=== PATIENT | female | born 1980 | race Caucasian/White ===

== ENCOUNTER → 2016-06-28 | Outpatient (CLI) | payer BC ==
[~2016-06-28] MED LIST: DIPH25CA37 PO; DOCU-94 PO; FAMO20TA9 PO; PRENTAB26 PO; SERT50TA PO
== END | disposition home or self-care (01) ==
LOC: C.PAPS 09:58
PROVIDERS: ATTEND Obstetrics & Gynecology
DX: Z01.419 Encounter for gynecological examination (general) (routine) without abnormal findings (principal)

== ENCOUNTER → 2016-11-16 | Outpatient (CLI) | payer BC ==
[2016-11-16 07:46] LABS: PATIENT HEIGHT 170.2 cm
[2016-11-16 20:11] LABS: URINE TOTAL PROTEIN < 5.0 mg/dl (0-11.9)
[2016-11-16 20:33] LABS: CREATININE 0.73 mg/dl (0.6-1.2); URINE COLLECTION TIME 24 HOURS; URINE TOTAL PROTEIN CALC < 305.0 mg/24 hr (0-149.1)
== END | disposition home or self-care (01) ==
LOC: C.LABBC 07:21
PROVIDERS: ATTEND Internal Medicine Nephrology
DX: Z52.4 Kidney donor (principal)

== ENCOUNTER → 2016-11-21 | Outpatient (CLI) | payer BC ==
--- NOTE | 2016-11-21 15:19 | MAMMOGRAPHY REPORT ---
BILATERAL DIGITAL DIAGNOSTIC MAMMOGRAM TOMOSYNTHESIS WITH CAD AND TARGETED RIGHT ULTRASOUND: 7 CLINICAL HISTORY: 36-year-old woman with bilateral saline implants and recent right implant rupture. She is undergoing preoperative assessment for kidney donation and was incidentally found to have a 5 mm nodular opacity overlying the anterior right fifth rib. A subsequent chest CT did not describe a ny breast abnormalities aside a small 5 mm bone island in the right fifth rib. Patient presents for full assessment. TECHNIQUE: Bilateral CC and MLO views of the breasts with and without implant displacement views were obtained. Tomosynthesis was performed on the implant displaced views. Current study was also evalu ated with a Computer Aided Detection (CAD) system. COMPARISON: No prior exams were available for comparison. BREAST COMPOSITION: The tissue of both breasts is heterogeneously dense, which may obscure small mas ses. FINDINGS: A left sided subglandular silicone implant is intact. A retropectoral right-sided implant is only partially seen on the full field CC view. This represents the site of the deflated implant. No suspicious mass, architectural distortion or cluster of microcalcifications is seen bilaterally. Targeted ultrasound was performed throughout the right breast, with particular attention to the later al aspect of the breast in the region of the anterior fifth rib. A morphologically normal lymph node is seen in the 10:00 breast near the axillary tail measuring 8 mm. No suspicious solid or cystic ma ss is identified. The deflated implant is seen deep to the pectoralis muscle. The hub of the implan t is noted in the 8:00 periareolar region. IMPRESSION: ACR BI-RADS CATEGORY 2: BENIGN, TARGETED ULTRASOUND ACR BI-RADS CATEGORY 2: BENIGN 1. There is a deflated right sided saline implant. 2. A left sided saline implant is intact. There is no mammographic evidence of malignancy in the br easts, and no targeted sonographic evidence of malignancy in the right breast. No suspicious mammogr aphic or sonographic abnormality is identified to correlate with the finding described on the initial outside chest x-ray from 11/06/2016. 3. Review of the outside chest x-ray and chest CT suggest that the bone island seen in the anterior right fifth rib on CT explains the nodular 5 mm density seen on the initial chest x-ray. There is no evidence of a suspicious finding within the right breast. These results and recommendations were discussed with the patient at the time of the exam. Recommend routine screening mammography beginning at age 40, unless there is a new palpable concern. Approximately 10% of breast cancers are not detected with mammography. A negative mammographic report should not delay biopsy if a clinically suggestive mass is present. Aimee Barkley M.D. ay/:11/21/2016 12:22:06 Molecular Biologist: Marely Lima, [facility] letter sent: Normal 1/2 BI-RADS Code: ACR BI-RADS Category 2: Benign Ultrasound BI-RADS: ACR BI-RADS Category 2: Benign
== END | disposition home or self-care (01) ==
LOC: C.MAMM 11:19
PROVIDERS: ATTEND Obstetrics & Gynecology
DX: T85.43XA Leakage of breast prosthesis and implant, initial encounter (principal); X58.XXXA Exposure to other specified factors, initial encounter

== ENCOUNTER → 2016-12-03 | Outpatient (CLI) | payer BC ==
[2016-12-03 17:09] LABS: CREATININE 0.67 mg/dl (0.60-1.20)
[2016-12-04 12:55] LABS: URINE TOTAL PROTEIN < 5.0 mg/dl (0-11.9)
[2016-12-04 13:06] LABS: URINE COLLECTION TIME 24 HOURS; URINE MICROALBUMIN < 5.0 mg/L; URINE MICROALBUMIN CALC 30.3 mg/24hr (0-30); URINE TOTAL PROTEIN CALC < 302.5 mg/24 hr (0-149.1)
[2016-12-06 06:11] LABS: ALBUMIN 4.7 G/DL (3.8-4.8); CREATININE UR 14 MG/DL (20-320); GAMMA GLOBULIN 1.1 G/DL (0.8-1.7); TOTAL PROTEIN 7.3 G/DL (6.2-8.3)
== END | disposition home or self-care (01) ==
LOC: C.LAB 15:42
PROVIDERS: ATTEND Internal Medicine Nephrology
DX: Z52.4 Kidney donor (principal)

== ENCOUNTER → 2017-07-23 | Outpatient (CLI) | payer BC | END | disposition home or self-care (01) | LOC: C.PATHSPEC 09:51 | PROVIDERS: ATTEND Obstetrics & Gynecology | DX: A63.0 Anogenital (venereal) warts (principal); N90.89 Other specified noninflammatory disorders of vulva and perineum ==

== ENCOUNTER → 2017-08-22 | Outpatient (CLI) | payer BC | END | disposition home or self-care (01) | LOC: C.PAPS 19:29 | PROVIDERS: ATTEND Obstetrics & Gynecology | DX: Z01.419 Encounter for gynecological examination (general) (routine) without abnormal findings (principal) ==

== ENCOUNTER 2018-06-07 10:58 | Inpatient (IN) ==
[2018-06-07 13:38] LABS: Amphetamines+Metham, Urine Neg (Neg); Barbiturates, Urine Neg (Neg); Benzodiazepine, Urine Neg (Neg); Cocaine, Urine Neg (Neg); MDMA (Ecstacy), Urine Neg (Neg); Methadone, Urine Neg (Neg); Opiate, Urine Neg (Neg); Phencyclidine, Urine Neg (Neg)
[2018-06-07] MEDS ORDERED: LACTATED RINGER'S 1,000 ML IV PRN ×2 (14:36→15:30)
[2018-06-07] MEDS ORDERED: OXYTOCIN 30 UNITS/500 ML BAG IV PRN ×2 (14:36→19:34)
[2018-06-07] MEDS ORDERED: PENICILLIN G POTASSIUM 3 MU in DEXTROSE 5% 100 ML IV PRN (14:36)
[2018-06-07] MEDS ORDERED: PENICILLIN G POTASSIUM 6 MU in DEXTROSE 5% 250 ML IV ONE (15:00)
[2018-06-07] MEDS ORDERED: BUPIVACAINE 0.25% 30 ML VIAL ONE (15:08)
[2018-06-07] MEDS ORDERED: fentaNYL citrate 100 MCG/2 ML VIAL ONE (15:08)
[2018-06-07] MEDS ORDERED: ePHEDrine sulfate 50 MG/ML AMP ONE (15:08)
[2018-06-07] MEDS ORDERED: fentaNYL 2MCG/ML ROPIV 1.25MG/ML 100 ML BAG EPI ONE (15:09)
[2018-06-07] MEDS ORDERED: ONDANSETRON INJ 2 MG/ML 2 ML VIAL IV PRN (15:30)
[2018-06-07] MEDS ORDERED: NALOXONE HCL 0.4 MG/1 ML VIAL/CARP IV PRN (15:30)
[2018-06-07] MEDS ORDERED: NALBUPHINE HCL INJ 10 MG/ML AMP IV PRN (15:30)
[2018-06-07] MEDS ORDERED: DiphenhydrAMINE HCL 50 MG/ML VIAL IV PRN (15:30)
[2018-06-07] MEDS ORDERED: NALOXONE HCL 1 MG in SODIUM CHLORIDE 0.9% 1000ML 1,000 ML IV PRN (15:30)
[2018-06-07] MEDS ORDERED: fentaNYL 2MCG/ML ROPIV 1.25MG/ML 100 ML BAG EPI PRN (15:30)
[2018-06-07] MEDS ORDERED: ePHEDrine sulfate 50 MG/ML AMP IV PRN (15:30)
[2018-06-07 15:33] LABS: Hematocrit (blood only) 35.8 % (37-47); Hemoglobin 12.1 g/dL (12.0-16.0); Mean Corpuscular Hgb Conc 33.8 g/dL (32-36); Mean Corpuscular Volume 90.2 fL (80-100); Mean Platelet Volume 12.9 fL (7.4-10.4); Platelet Count 106 K/uL (130-400); Platelet Estimate Decreased (Normal); RDW Coefficient of Variation 13.6 % (11.5-14.5); RDW Standard Deviation 44.9 fL (36.4-46.3); Red Blood Count 3.97 M/uL (4.2-5.4)
[2018-06-07] MEDS ORDERED: LIDOCAINE HCL 2% MPF (LOCAL) 5 ML VIAL INFIL ONE (15:57)
[2018-06-07] MEDS: LACTATED RINGER'S 1,000 ML IV SCH (16:06)
[2018-06-07] MEDS ORDERED: DIPHTHERIA/TETANUS/PERTUSSIS 0.5 ML SYR/VIAL IM ONE (19:34)
[2018-06-07] MEDS ORDERED: BENZOCAINE 20% AER SPR 82.5 GM CAN EXT PRN (19:34)
[2018-06-07] MEDS ORDERED: ACETAMINOPHEN 325 MG TAB PO PRN (19:34)
[2018-06-07] MEDS ORDERED: SUPERCREAM 0.870% 15 GM JAR EXT PRN (19:34)
[2018-06-07] MEDS ORDERED: BISACODYL 10 MG SUPP PR PRN (19:34)
[2018-06-07] MEDS ORDERED: HYDROCORTISONE ACETATE 25 MG SUPP PR PRN (19:34)
--- NOTE | 2018-06-07 20:11 | Anesthesia Procedure Note ---
Date of Service June 07, 2018 Anesthesia Post Epidural Note Vital Signs Vital Signs: Temp Pulse Resp BP Pulse Ox 36.5 C 76 20 121/72 98 06/07/18 19:00 06/07/18 20:06 06/07/18 19:00 06/07/18 20:06 06/07/18 19:19 Notes Mental Status: alert / awake / arousable and participated in evaluation Nausea / Vomiting: adequately controlled Pain: adequately controlled Airway Patency, RR, SpO2: stable & adequate BP & HR: stable & adequate Hydration State: stable & adequate Neuraxial Anesthesia: was administered and sensory block is resolving Anesthetic Complications: no major complications apparent and Pt Satisfied with anesthetic care Epidural: Removed without complications and With tip intact
--- NOTE | 2018-06-07 21:40 | Delivery Summary ---
DATE OF OPERATION: 06/07/2018 SURGEON: Lorenzo Campbell MD PREOPERATIVE DIAGNOSES: 1. Single intrauterine at 40 weeks and 4 days gestational age. 2. GBS positive. 3. Labor. POSTOPERATIVE DIAGNOSES: 1. Single intrauterine at 40 weeks and 4 days gestational age. 2. GBS positive. 3. Labor. 4. Delivered. ESTIMATED BLOOD LOSS: 200 mL DRAINS: None. FLUIDS: Continuous lactated ringer. URINE OUTPUT: Not measured. SPECIMENS: None. FINDINGS: Viable female infant with weight and Apgars pending. INDICATIONS: Jeannette is a 37-year-old -0-0-1, admitted at 40 weeks 4 days gestational age in labor. At first evaluation, the patient was noted to be 2 cm dilated, 80% effaced and -3 station. A 2-hour igor noted to change to 4 cm dilated, 80% effaced, -2 station. The patient was admitted to labor and delivery. The patient opted for an epidural and continued to progress in labor without augmentation. She underwent spontaneous rupture of membranes for clear fluid and progressed to complete-complete 0 station, at which time she felt the desire to push. DESCRIPTION OF PROCEDURE: The patient progressed to 10 cm dilated, 100% effaced, 0 station, pushed over intact perineum with epidural anesthesia and delivered a viable female infant with weight and Apgars as above. The head of the delivered in DREAD position restituted to right transverse as single nuchal cord was noted, which was easily reduced. The body and shoulders quickly followed. The was noted to be vigorous approximately 40 seconds after delivery. The cord was double clamped and cut. The cord blood was then obtained. Attention was then turned to delivery of the placenta was delivered intact with 3-vessel cord with gentle cord traction. Inspection of the perineum, vagina, and cervix noted no lacerations. Both mother and were stable in the immediate postdelivery. Sponge and instrument counts were correct at completion of the case. I attest to the content of the Intraoperative Record and any orders documented therein. Any exception s are noted below.
[2018-06-07] MEDS: IBUPROFEN 600 MG TAB PO PRN (22:24)
[2018-06-07] MEDS: DOCUSATE SODIUM 100 MG CAP PO SCH (22:25)
[2018-06-08] MEDS: IBUPROFEN 600 MG TAB PO PRN ×3 (02:42→20:04)
--- NOTE | 2018-06-08 05:58 | Obstetrical Progress Note ---
Date of Service June 08, 2018 Assessment & Plan (1) Vaginal delivery: Patient doing well. - Routine care - UDS: +MJ. Social work Subjective Ambulation: ambulating normally Voiding: no voiding problems Passing Gas:: Yes Diet Tolerance:: regular diet Lochia:: Moderate Physical Exam Vital Signs (Past 24 Hours) Last Vital Signs Temp 36.7 C 06/08/18 03:30 Pulse 50 L 06/08/18 03:30 Resp 20 06/08/18 03:30 BP 122/66 06/08/18 03:30 Pulse Ox 98 06/08/18 03:30 Genitourinary OB Exam Abdomen: + fundal height Fundus: + firm and + relation to umbilicus (Below); not tender and not boggy
[2018-06-08 07:04] LABS: Hematocrit (blood only) 33.8 % (37-47); Hemoglobin 11.5 g/dL (12.0-16.0)
[2018-06-08] MEDS: LACTATED RINGER'S 1,000 ML IV SCH (07:34)
[2018-06-08] MEDS: DOCUSATE SODIUM 100 MG CAP PO SCH ×2 (08:59→20:05)
[2018-06-08] MEDS: PRENATAL VITAMIN 1 TAB PO SCH (09:00)
[2018-06-08] MEDS ORDERED: BISACODYL 5 MG TABEC PO SCH (20:00)
--- NOTE | 2018-06-09 07:21 | Obstetrical Progress Note ---
Date of Service June 09, 2018 Assessment & Plan (1) Status post vaginal delivery: Patient is a 37 year old PPD 2 s/p -Vital signs WNL bp 119/77 T36.7 -Hemoglobin is 11.5 on ppd1 down from 12.1 on admission. no si/sx of anemia. -Pt is doing clinically well -Continue to encourage ambulation as tolerated, Monitor and control pain with motrin prn, Continue diet as tolerated. -Continue to support and encourage breast feeding -Counseled patient on discharge instructions including Vaginal bleeding, fevers, followup, lifting restrictions, breast feeding, vitamins, and nothing in the vagina for 6 weeks. Pt was agreeable -Plan for d/c today Supervising Physician Co-Signing Physician Notes Patient seen and evaluated and agree with the above assessment and plan Subjective pt standing rocking baby. no acute events overnight. Patient is tolerating her diet, ambulating, passing gas and voiding, stooling. Reports moderate lochia. Denies H/A, chest pain, palpitations and uti syx. No concerns at this time pain is well controlled. Physical Exam Vital Signs (Past 24 Hours): Last Vital Signs Temp 36.7 C 06/08/18 23:15 Pulse 62 06/08/18 23:15 Resp 16 06/08/18 23:15 BP 119/77 06/08/18 23:15 Pulse Ox 98 06/08/18 23:15 Constitutional: WD/WN, vitals as above Cardiovascular: Extremities: no calf tenderness and no pedal edema Gastrointestinal (Abdomen): normal bowel sounds, soft, nontender, no hepatosplenomegaly (uterus firm below umbilicus) Results & Data Medications Administered Current Inpatient Medications Acetaminophen (Tylenol) 650 mg PO Q6H PRN PRN Reason: Pain/SYED/Fever Stop: 07/07/18 19:33 Benzocaine (Dermoplast Pain Relieving [place]) 1 appln EXT PRN PRN PRN Reason: Perineal Discomfort Stop: 07/07/18 19:33 Bisacodyl (Dulcolax) 10 mg [place] DAILY PRN PRN Reason: No BM on 2nd post- day Stop: 07/07/18 19:33 Cocaine HCl (Supercream 0.870%) 1 gm EXT BID PRN PRN Reason: Hemorrhoidal Inflammation Stop: 06/21/18 19:33 Last Admin: 06/07/18 22:24 Dose: 15 gm Documented by: Docusate Sodium (Colace) 100 mg PO BID [facility] Stop: 07/07/18 20:59 Last Admin: 06/08/18 20:05 Dose: 100 mg Documented by: Hydrocortisone (Anusol Hc) 25 mg [place] BID PRN PRN Reason: Hemorrhoidal Inflammation Stop: 07/07/18 19:33 Lactated Ringer's (Lr) 1,000 mls @ 999 mls/hr IV .Q1H1M PRN PRN Reason: (Pre-Anesthesia) Stop: 07/07/18 14:35 Last Infusion: 06/07/18 20:01 Dose: Infused Documented by: Lactated Ringer's (Lr) 1,000 mls @ 125 mls/hr IV .Q8H [facility] Stop: 06/09/18 14:44 Last Admin: 06/08/18 07:34 Dose: Not Given Documented by: Oxytocin (Pitocin) 30 units in 500 mls @ 333.333 mls/hr IV .Q1H30M PRN; Protocol PRN Reason: Bleeding Control Stop: 07/07/18 14:35 Last Admin: 06/07/18 19:18 Dose: 59.94 units/hr, 999 mls/hr Documented by: Oxytocin (Pitocin) 30 units in 500 mls @ 333.333 mls/hr IV .Q1H30M PRN; Protocol PRN Reason: BLEEDING CONTROL Stop: 07/07/18 19:33 Ibuprofen (Motrin) 600 mg PO Q4H PRN PRN Reason: Pain/SYED/Cramping/Fever Stop: 07/07/18 19:33 Last Admin: 06/08/18 20:04 Dose: 600 mg Documented by: Prenat Multivit/Fisher/Iron/Folic Ac ( Vitamin) 1 tab PO QAM [facility] Stop: 07/08/18 08:59 Last Admin: 06/08/18 09:00 Dose: 1 tab Documented by: Resident Activity Tracking Resident Involvement: Resident Care Provided Care Provided: Adult Hospital Medicine
[2018-06-09] MEDS: PRENATAL VITAMIN 1 TAB PO SCH (08:23)
[2018-06-09] MEDS: DOCUSATE SODIUM 100 MG CAP PO SCH (08:24)
[2018-06-09] MEDS: IBUPROFEN 600 MG TAB PO PRN (08:24)
== END 2018-06-09 14:36 | disposition home or self-care (01) | DRG 807 ==
LOC: OPB 10:58 → 4S1 11:00 → 4S2 22:15